=== PATIENT | female | born 1945 | race Caucasian/White ===

== ENCOUNTER 2016-07-04 10:52 | Outpatient (CLI) ==
[2016-02-12 17:29] VITALS: BMI 20.5
[2016-07-04 12:36] LABS: BASOPHILS # (AUTO) 0.2 K/uL (0-0.2); BASOPHILS % (AUTO) 2.1 % (0.0-3.0); EOSINOPHILS # (AUTO) 0.8 K/ul (0.0-0.7); EOSINOPHILS % (AUTO) 9.4 % (0.0-7.0); HEMATOCRIT 33.2 % (37.0-47.0); HEMOGLOBIN 11.1 g/dl (12.0-16.0); IMMATURE GRANULOCYTE % (AUTO) 0.3 % (0.0-5.0); LYMPHOCYTES # (AUTO) 1.8 K/uL (0.60-3.4); LYMPHOCYTES % (AUTO) 20.6 (10.0-50.0); MEAN CORPUSCULAR HEMOGLOBIN 29.4 pg (27.0-31.0); MEAN CORPUSCULAR HGB CONC 33.4 (31.8-35.4); MEAN CORPUSCULAR VOLUME 88.1 fl (81.0-99.0); MONOCYTES # (AUTO) 0.6 K/uL (0.4-2.0); MONOCYTES % (AUTO) 6.4 (0-10); NEUTROPHILS # (AUTO) 5.3 K/ul (2.0-6.9); NEUTROPHILS % (AUTO) 61.2; PLATELET COUNT 315 10^3/uL (140-440); RED BLOOD COUNT 3.77 10^6/ul (4.20-5.40); WHITE BLOOD COUNT 8.71 K/ul (4.6-10.2)
[2016-07-04 13:13] LABS: ALBUMIN 3.7 g/dL (3.4-5.0); ALBUMIN/GLOBULIN RATIO 0.84; BILIRUBIN,TOTAL 0.42 mg/dL (0.00-1.20); BUN/CREATININE RATIO 13.28; CALCIUM 9.7 mg/dL (8.2-10.2); CHOL/HDL RATIO 8.1 (4.5-5.5); CREATININE 1.43 mg/dL (0.60-1.30); TOTAL PROTEIN 8.1 g/dL (5.8-8.1)
== END 2016-07-04 10:53 | disposition home or self-care (01) ==
LOC: LAB 10:52
PROVIDERS: ATTEND Nurse Practitioner Family
DX: E11.9 Type 2 diabetes mellitus without complications (principal); E75.6 Lipid storage disorder, unspecified; G62.9 Polyneuropathy, unspecified
CPT/HCPCS: 36415; 80053; 80061; 83036; 84439; 84443; 85025

== ENCOUNTER 2016-07-10 19:51 | Emergency (ER) ==
[2016-07-10] MEDS ORDERED: URO-JET MUCOUSMEMB STA (19:56)
[2016-07-10 20:01] VITALS: TEMP 96.8; BMI 20.7
[2016-07-10 20:07] LABS: BASOPHILS # (AUTO) 0.2 K/uL (0-0.2); BASOPHILS % (AUTO) 2.9 % (0.0-3.0); EOSINOPHILS # (AUTO) 0.7 K/ul (0.0-0.7); EOSINOPHILS % (AUTO) 9.3 % (0.0-7.0); HEMATOCRIT 33.6 % (37.0-47.0); HEMOGLOBIN 11.6 g/dl (12.0-16.0); IMMATURE GRANULOCYTE % (AUTO) 0.5 % (0.0-5.0); LYMPHOCYTES % (AUTO) 39.8 (10.0-50.0); MEAN CORPUSCULAR HGB CONC 34.5 (31.8-35.4); MEAN CORPUSCULAR VOLUME 86.8 fl (81.0-99.0); MONOCYTES # (AUTO) 0.6 K/uL (0.4-2.0); MONOCYTES % (AUTO) 8.4 (0-10); NEUTROPHILS # (AUTO) 2.9 K/ul (2.0-6.9); NEUTROPHILS % (AUTO) 39.1; PLATELET COUNT 339 10^3/uL (140-440); RED BLOOD COUNT 3.87 10^6/ul (4.20-5.40); WHITE BLOOD COUNT 7.53 K/ul (4.6-10.2)
[2016-07-10 20:28] LABS: ABG BASE EXCESS -8 (-2.0-2.0); ABG HCO3 18.2 (22.0-26.0); ABG PH 7.325 (7.35-7.45); ABG TCO2 19 (22.0-28.0)
[2016-07-10 20:45] LABS: ALANINE AMINOTRANSFERASE 15 U/L (12-78); ALBUMIN 3.9 g/dL (3.4-5.0); ALBUMIN/GLOBULIN RATIO 1.03; ALKALINE PHOSPHATASE 92 U/L (53-141); ANION GAP 16.4; ASPARTATE AMINO TRANSFERASE 17 U/L (15-37); BILIRUBIN,TOTAL 0.62 mg/dL (0.00-1.20); BLOOD UREA NITROGEN 24 mg/dL (7-18); CALCIUM 9.6 mg/dL (8.2-10.2); CARBON DIOXIDE 19 mmol/L (23-31); CHLORIDE 107 mmol/L (98-107); CREATINE KINASE 36 U/L; GLUCOSE 166 mg/dL (82-115); POTASSIUM 4.4 mmol/L (3.5-5.10); SODIUM 138 mmol/L (136-145); TOTAL PROTEIN 7.7 g/dL (5.8-8.1)
[2016-07-10 20:57] LABS: BILIRUBIN,URINE Negative (NEGATIVE); KETONES,URINE Negative (NEGATIVE); LEUKOCYTE ESTERASE ,URINE Negative (NEGATIVE); NITRITE,URINE Negative (NEGATIVE); PH,URINE 5.5 (5-9); PROTEIN,URINE Trace (NEGATIVE); URINE, BLOOD Negative (NEGATIVE)
[2016-07-10 21:03] LABS: ADD URINE MICROSCOPIC YES
[2016-07-10 21:04] LABS: BACTERIA,URINE TRACE (NOT PRESENT)
--- NOTE | 2016-07-10 22:13 | ED.PDOC ---
General ED Provider: Dr. FLORENTIN RATLIFF-ER Chief Complaint: Weakness Stated Complaint: she got dizzy tonight and felt weak--whenever she stands up she gets dizzy and lightheaded--she just started duloxatine for neuropathy Time Seen by Physician: 19:55 Mode of Arrival: Wheelchair Information Source: Patient, Family Exam Limitations: No limitations Primary Care Provider: [facility] Nursing and Triage Documentation Reviewed and Agree: Yes Neurological Complaint Exam - Dizziness Complaint/Exam Last Known Well: yesterday Onset: Sudden Symptoms Are: Resolved Episodes Lasting: Minutes Initial Severity: Mild Current Severity: None Character: Reports: Lightheaded, Weak, Dizzy Aggravating: Reports: None Alleviating: Reports: None Associated Signs and Symptoms: Reports: Nausea, Vomiting, Loss of balance. Denies: Diaphoresis, Tinnitus, Chest pain, Short of air, Palpitations, Unsteady gait, GI blood loss, Visual changes, Decreased oral intake, Change in medication , Change in diet, OTC meds Cardiac Risk Factors: Reports: Hypertension, Diabetes CVA Risk Factors: Reports: Diabetes, Hypertension JVD Present: No Carotid Bruit Present: No Glascow Coma Scale (see protocol): 15 Nystagmus Present: No Gag Reflex Present: No Meningeal Signs Positive: No Focal Weakness: Present: None Focal Sensory Loss: Present: None Gait: Normal [id number]: Normal Findings Romberg Test Positive: No Babinski Sign: Negative Right, Negative Left Heel to Toe Normal: Yes Mitesh-Hallpike Test Positive: No Differential Diagnoses: Dysrhythmia, BPPV, Metabolic abnormalities, Vasovagal reaction Quality Indicator For Non-Traumatic Chest Pain/Syncope: EKG Performed Review of Systems - Review Of Systems Constitutional: Reports: Weakness Eyes: Reports: No symptoms Ears, Nose, Mouth, Throat: Reports: No symptoms Respiratory: Reports: No symptoms Cardiac: Reports: Lightheadedness GI: Reports: No symptoms : Reports: No symptoms Musculoskeletal: Reports: No symptoms Skin: Reports: No symptoms Neurological: Reports: Weakness Endocrine: Reports: No symptoms Hematologic/Lymphatic: Reports: No symptoms All Other Systems: Reviewed and Negative Past Medical History - Past Medical History Previously Healthy: No Endocrine: Reports: Hypothyroid, Dyslipidemia Cardiovascular: Reports: Hypertension Respiratory: Reports: Unknown Hematological: Reports: Unknown Gastrointestinal: Reports: Unknown Genitourinary: Reports: Unknown Neuro/Psych: Reports: Unknown Musculoskeletal: Reports: None Cancer: Reports: Unknown Last Menstrual Period: A LONG TIME AGO - Surgical History General Surgical History: Reports: Unknown - Family History Family History: Reports: Unknown - Social History Smoking Status: Never smoker Hx Substance Use: No Alcohol Screening: None - Immunizations Tetanus Shot up to Date: Yes Physical Exam - Physical Exam Appearance: Well-appearing, No pain distress, Well-nourished Eyes: LASHELL, EOMI, Conjunctiva clear ENT: Ears normal, Nose normal, Oropharynx normal Neck: Supple Respiratory: Airway patent Cardiovascular: RRR, Pulses normal, No rub, No murmur GI/: Soft, Nontender, No masses, Bowel sounds normal, No Organomegaly Musculoskeletal: Normal strength, ROM intact, No edema, No calf tenderness Skin: Warm, Dry, Normal color Neurological: Sensation intact, Motor intact, Reflexes intact, Cranial nerves intact, Alert, Oriented Psychiatric: Affect appropriate, Mood appropriate Interpretation - Radiology Interpretation Radiology Interpretation By: Radiologist Radiology Results: Negative Re-Evaluation - Re-Evaluation Time of Re-Evaluation: 05:53 Status: Improved (noted orthostatic bp changes but much improved--no dizzines) Vital Signs Stable: Yes Pain Level: 0 Appearance: NAD Lungs: Clear Skin: Warm and Dry Neuro: Alert and Oriented X3 CV: RRR Critical Care Note - Critical Care Note Total Time (mins): 0 Course - Course Hematology/Chemistry: 07/10/16 20:00 07/10/16 20:00 Orders, Labs, Meds: Lab Review 07/10/16 07/10/16 07/10/16 19:55 20:00 20:45 WBC 7.53 RBC 3.87 L Hgb 11.6 L Hct 33.6 L MCV 86.8 MCH 30.0 MCHC 34.5 RDW Coeff of [place] 15.0 H Plt Count 339 Immature Gran % (Auto) 0.5 Neut % (Auto) 39.1 Lymph % (Auto) 39.8 [place] % (Auto) 8.4 Eos % (Auto) 9.3 H Baso % (Auto) 2.9 Immature Gran # (Auto) 0.0 Neut # 2.9 Lymph # 3.0 [place] # 0.6 Eos # 0.7 Baso # 0.2 Puncture Site Lb O2 Saturation 90.0 L ABG pH 7.325 L ABG pCO2 35.0 ABG pO2 61.0 L ABG HCO3 18.2 L ABG Total CO2 19 L ABG Base Excess -8 L Farhat Test + FiO2 % 21.0 Sodium 138 Potassium 4.4 Chloride 107 Carbon Dioxide 19 L Anion Gap 16.4 BUN 24 H Creatinine 1.60 H Estimated GFR (MDRD) 32.00 BUN/Creatinine Ratio 15.00 Glucose 166 H Calcium 9.6 Total Bilirubin 0.62 AST 17 ALT 15 Alkaline Phosphatase 92 Total Creatine Kinase 36 Troponin I < 0.0100 Total Protein 7.7 Albumin 3.9 Globulin 3.8 Albumin/Globulin Ratio 1.03 TSH 62.859 H Urine Color Yellow Urine Clarity Clear Urine pH 5.5 Ur Specific [place] 1.015 Urine Protein Trace Urine Glucose (UA) Negative Urine Ketones Negative Urine Blood Negative Urine Nitrite Negative Urine Bilirubin Negative Urine Urobilinogen 0.2 Ur Leukocyte Esterase Negative Urine Microscopic RBC 0-2 Ur Squamous Epith Cells Not present Urine Bacteria Trace Hyaline Casts 0-2 Orders Category Date Time Status ABG DRAW REQUEST Stat CARDIO 07/10/16 19:55 Completed EKG-(ED ONLY) Stat CARDIO 07/10/16 19:55 Completed 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] .ONCE EMERGENCY 07/10/16 19:56 Active ED ACCUCHECK ASSESSMENT .ONCE EMERGENCY 07/10/16 19:56 Active ED IV/MEDIPORT/POWERPORT .ONCE EMERGENCY 07/10/16 22:54 Active Jones [ED CATHETER INSERTION AND CARE] .ONCE EMERGENCY 07/10/16 19:56 Active ABG Stat LAB 07/10/16 19:55 Completed CBC W/ AUTO DIFF Stat LAB 07/10/16 20:00 Completed COMPREHENSIVE METABOLIC PANEL Stat LAB 07/10/16 20:00 Completed CREATINE KINASE Stat LAB 07/10/16 20:00 Completed OCCULT BLOOD, STOOL Stat LAB 07/11/16 05:58 Ordered TROPONIN I Stat LAB 07/10/16 20:00 Completed TSH [THYROID STIMULATING HORMONE] Stat LAB 07/10/16 20:00 Completed URINALYSIS C & S IF INDICATED Stat LAB 07/10/16 20:45 Completed 0.9 % Sodium Chloride [Saline Flush] MEDS 07/10/16 22:54 Ordered 1 syr IVF PRN PRN Lidocaine HCl [Uro-Jet] MEDS 07/10/16 19:56 Discontinued 10 ml [id number] ONCE STA Sodium Chloride 0.9% [Sodium Chloride] 1,000 ml MEDS 07/10/16 22:54 Discontinued IV BOLUS Sodium Chloride 0.9% [Sodium Chloride] 1,000 ml MEDS 07/11/16 02:[address] ABDOMEN/PELVIS WO CONTRAST Stat RADS 07/10/16 19:[address] CHEST W/O CONTRAST Stat RADS 07/10/16 19:[address] HEAD W/O CONTRAST Stat RADS 07/10/16 19:55 Completed Medications Generic Name Dose Route Start Last Admin Trade Name Freq PRN Reason Stop Dose Admin Sodium Chloride 1 syr 07/10/16 22:54 07/11/16 02:36 Saline Flush IVF 1 syr PRN PRN Administration To flush IV Discontinued Medications Generic Name Dose Route Start Last Admin Trade Name Freq PRN Reason Stop Dose Admin Sodium Chloride 1,000 mls @ 1,000 mls/hr 07/10/16 22:54 07/10/16 23:05 Sodium Chloride IV 07/10/16 23:53 1,000 mls/hr BOLUS STA Administration Sodium Chloride 1,000 mls @ 1,000 mls/hr 07/11/16 02:26 07/11/16 02:36 Sodium Chloride IV 07/11/16 03:25 1,000 mls/hr BOLUS STA Administration Lidocaine HCl 10 ml 07/10/16 19:56 07/10/16 21:52 Uro-Jet MUCOUSMEMB 07/10/16 19:57 Not Given ONCE STA Vital Signs: Temp Pulse Resp BP Pulse Ox 07/11/16 01:48 95 H 68/49 L 07/10/16 19:52 96.8 F L 86 18 102/68 94 L Departure - Departure Time of Disposition: 05:54 Disposition: HOME SELF-CARE Discharge Problem: Orthostasis Instructions: Lightheadedness (ED), Dizziness (ED) Condition: Good Pt referred to PMD for follow-up: Yes Additional Instructions: stop duloxetine and levaquin--drink fluids--get up very slowly--f/u with pcp this week--keep appt with your doctor in [place] in 3weeks for the pelvic mass-- follow u with pcp about abnormal thyroid testing--make sure she is taking thyroid meds Allergies/Adverse Reactions: Allergies No Known Allergies Allergy (Verified 05/21/17 20:01) Home Medications: Ambulatory Orders Lisinopril [Zestril] 10 mg PO DAILY #30 tablet 09/02/13 Disposition Discussed With: Patient, Family
--- NOTE | 2016-07-10 22:34 | CT ---
EXAM: CT scan of the abdomen and pelvis without contrast HISTORY: Abdominal pain, weakness TECHNIQUE: Imaging of the abdomen and pelvis was performed without contrast. 3 mm thin axial image s and coronal and sagittal reconstructions were provided for interpretation. Comparison CT scan of the abdomen and pelvis dated 09/20/2014. FINDINGS: Small gallstones are seen. The pancreas, adrenal glands and kidneys appear normal. The proximal ureters are normal size. The small and large bowel loops are normal caliber. There is no free air. The helical images obtained through the pelvis demonstrate a normal appearance of the rectum, urinar y bladder. A large hypodense mass lesion is again seen within the central and left paracentral pelvi s. The findings measure up to 12.6 cm AP, 7.7 cm transverse, 9.9 cm in height. The appendix was no t well seen. No definite inflammatory changes are seen in the right lower quadrant of the abdomen. Scattered diverticula are seen throughout the colon without acute inflammation. Lung bases are sofya ar. No lytic or blastic lesions are seen within the osseous structures. IMPRESSION: There is no bowel obstruction or acute inflammatory change seen within the abdomen and pelvis. 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 There is no ureteral obstruction. Cholelithiasis. A large mass lesion is again seen within the pelvis. The findings appear to be slightly increasing in size when compared to previous study.
--- NOTE | 2016-07-10 22:34 | CT ---
EXAM: CT scan of the head without contrast HISTORY: Weakness TECHNIQUE: Imaging of the head was performed without intravenous contrast. 5 mm thin axial images and coronal and sagittal images were provided for interpretation. FINDINGS: The lateral ventricles and cortical sulci are prominent from atrophy. Low density change s are seen throughout the supratentorial white matter. There is no acute hemorrhage or mass effect. There is physiologic calcification of the basal ganglia bilaterally. There are no extraaxial collec tions. The paranasal sinuses are clear. Patchy opacities are seen within the mastoid air cells. T he extracranial soft tissues are normal. IMPRESSION: No acute intracranial abnormalities are seen. Chronic small vessel ischemic changes seen throughout the supratentorial white matter.
--- NOTE | 2016-07-10 22:34 | CT ---
EXAM: CT scan of the chest without contrast HISTORY: Cough TECHNIQUE: Imaging of the chest was performed without contrast. 5 mm thin axial images and coronal and sagittal reconstructions were provided for interpretation. FINDINGS: Imaging of the chest was performed without contrast. 5 mm thin axial images and coronal and sagittal reconstructions were provided for interpretation. Comparison none. FINDINGS: The heart is normal size. No mediastinal masses are seen. There is atherosclerotic calc ification of the coronary arteries and thoracic aorta. Lungs are clear. No lytic or blastic lesions are seen within the osseous structures. IMPRESSION: No acute abnormalities are seen within the thorax.
[2016-07-10] MEDS ORDERED: SODIUM CHLORIDE 1,000 ML IV STA (22:54)
[2016-07-11] MEDS ORDERED: SODIUM CHLORIDE 1,000 ML IV STA (02:26)
[2016-07-11 02:28] VITALS: BP 68/49
[2016-07-11 06:47] LABS: OCCULT BLOOD INTERNAL QC 1 INTERNAL QC VALID; OCCULT BLOOD INTERNAL QC 2 INTERNAL QC VALID; OCCULT BLOOD INTERNAL QC 3 INTERNAL QC VALID; OCCULT BLOOD SAMPLE 1 NEGATIVE (NEGATIVE); OCCULT BLOOD SAMPLE 2 NO SPECIMEN RECEIVED (NEGATIVE); OCCULT BLOOD SAMPLE 3 NO SPECIMEN RECEIVED (NEGATIVE)
== END 2016-07-11 07:00 | disposition home or self-care (01) ==
LOC: ED 19:51
DX: I95.1 Orthostatic hypotension (principal); E11.9 Type 2 diabetes mellitus without complications; I10 Essential (primary) hypertension; E03.9 Hypothyroidism, unspecified; E78.5 Hyperlipidemia, unspecified; R11.2 Nausea with vomiting, unspecified; R26.89 Other abnormalities of gait and mobility; R19.00 Intra-abdominal and pelvic swelling, mass and lump, unspecified site; R53.1 Weakness; G62.9 Polyneuropathy, unspecified; Z79.899 Other long term (current) drug therapy
CPT/HCPCS: 36415; 80053; 81001; 82272; 82550; 82803; 82962; 84443; 84484; 85025; 93005; 93010; 96360; 96361; 99283

== ENCOUNTER 2016-11-02 12:43 | Outpatient (CLI) ==
[2016-11-02 12:52] LABS: BASOPHILS # (AUTO) 0.1 K/uL (0-0.2); BASOPHILS % (AUTO) 1.2 % (0.0-3.0); EOSINOPHILS # (AUTO) 0.8 K/ul (0.0-0.7); HEMATOCRIT 28.7 % (37.0-47.0); HEMOGLOBIN 9.4 g/dl (12.0-16.0); IMMATURE GRANULOCYTE % (AUTO) 0.5 % (0.0-5.0); IMMATURE RETIC FRACTION 9.5; LYMPHOCYTES % (AUTO) 18.2 (10.0-50.0); MEAN CORPUSCULAR HEMOGLOBIN 28.1 pg (27.0-31.0); MEAN CORPUSCULAR HGB CONC 32.8 (31.8-35.4); MEAN CORPUSCULAR VOLUME 85.9 fl (81.0-99.0); MONOCYTES # (AUTO) 0.9 K/uL (0.4-2.0); MONOCYTES % (AUTO) 7.6 (0-10); NEUTROPHILS # (AUTO) 7.4 K/ul (2.0-6.9); NEUTROPHILS % (AUTO) 65.5; PLATELET COUNT 462 10^3/uL (140-440); RED BLOOD COUNT 3.34 10^6/ul (4.20-5.40); RETICULOCYTE % 0.77 %; WHITE BLOOD COUNT 11.22 K/ul (4.6-10.2)
[2016-11-02 13:39] LABS: ALBUMIN 3.3 g/dL (3.4-5.0); ALBUMIN/GLOBULIN RATIO 0.69; ANION GAP 16.6; BILIRUBIN,TOTAL 0.41 mg/dL (0.00-1.20); BUN/CREATININE RATIO 24.37; CALCIUM 10.5 mg/dL (8.2-10.2); CHOL/HDL RATIO 7.5 (4.5-5.5); CREATININE 1.6 mg/dL (0.60-1.30); FERRITIN 307.89 ng/mL (4.63-204.00); FOLATE 14.6 ng/mL (3.1-20.5); POTASSIUM 5.6 mmol/L (3.5-5.10); TOTAL PROTEIN 8.1 g/dL (5.8-8.1)
== END 2016-11-02 12:44 | disposition home or self-care (01) ==
LOC: LAB 12:43
PROVIDERS: ATTEND Nurse Practitioner Family
DX: R53.83 Other fatigue (principal); D64.9 Anemia, unspecified; M19.90 Unspecified osteoarthritis, unspecified site; E11.9 Type 2 diabetes mellitus without complications; E03.9 Hypothyroidism, unspecified
CPT/HCPCS: 36415; 80053; 80061; 82607; 82728; 82746; 83036; 83540; 83550; 84443; 84466; 85025; 85045

== ENCOUNTER 2017-12-05 11:35 | Outpatient (CLI) | END 2017-12-05 11:36 | disposition home or self-care (01) | LOC: RHC-LAB 11:35 | PROVIDERS: ATTEND Nurse Practitioner Family | DX: E78.5 Hyperlipidemia, unspecified (principal); I10 Essential (primary) hypertension; E03.9 Hypothyroidism, unspecified; E11.9 Type 2 diabetes mellitus without complications; D64.9 Anemia, unspecified; G25.81 Restless legs syndrome | CPT/HCPCS: 36415; 80053; 80061; 83036; 84443; 85025 ==